=== PATIENT | male | born 1995 | race Caucasian/White ===

== ENCOUNTER 2017-06-09 19:51 | Emergency (ER) | payer OTHER ==
[~2017-06-09] VITALS: Ht 175.3 cm; Wt 65.4 kg
--- NOTE | 2017-06-09 19:58 | ED.ADGEN ---
Past History Past Medical History: Anxiety Adult General Chief Complaint Chief Complaint ".. I ve been diagnosed with generalized anxiety disorder and recently started on Lexapro... I been having a really bad at time with it and today and started having chest pain radiates into my left arm... And armpit.... I did have an EKG up in [facility] and I was told everything was normal. I had a previous workup for chest pain when he get everything in the first year of college with similar type presentation... I am working up in [facility] but drove home... today. HPI HPI Patient is a 21 year old male who presents with above hx and complaints of chest pain, left axillary and arm pain . Patient describes discomfort as an ache and burning. No history of trauma. Is normally fairly active and plays soccer. Pt. has had previous echo and treadmill evaluation 4 years ago which reportedly normal. Has not had a cardiac test or tilt table evaluation. No history of DVT. There is a family history of late onset blood clotting, MIs both on father and mother's side. Most cardiac disorders started in the 6-7th decade with relatives. No history of cardiac disorders in his age group or history of sudden . Patient reports he did have a functional heart murmur as a child. Supposedly murmur has resolved with age. Patient has previous diagnosis of generalized anxiety disorder made emergency department, and was started on Lexapro 10 mg a day. Patient is establishing a primary care at [facility]. Review of Systems Review of Systems Constitutional: Denies fever or chills [] Eyes: Denies change in visual acuity, redness, or eye pain [] HENT: Denies nasal congestion or sore throat [] Respiratory: Denies cough or shortness of breath [] Cardiovascular: No additional information not addressed in HPI [] GI: Denies abdominal pain, nausea, vomiting, bloody stools or diarrhea [] : Denies dysuria or hematuria [] Musculoskeletal: Denies back pain or joint pain [] Integument: Denies rash or skin lesions [] Neurologic: Denies headache, focal weakness or sensory changes [] Endocrine: Denies polyuria or polydipsia [] All other systems were reviewed and found to be within normal limits, except as documented in this note. Family History Family History Late onset cardiac disorders ages 60-70 Current Medications Current Medications Current Medications Medications (Trade) Dose Ordered Sig/Amauri Start Time Stop Time Status Last Admin Dose Admin Aspirin (Children'S Aspirin) 324 mg 1X ONCE 06/09/17 20:15 06/09/17 20:41 DC 06/09/17 20:34 324 MG Lactated Ringer's 1,000 ml @ 1,000 mls/hr Q1H 06/09/17 21:00 06/09/17 21:59 DC 06/09/17 20:57 1,000 MLS/HR Lorazepam (Ativan) 1 mg 1X ONCE 06/09/17 20:15 06/09/17 20:41 DC 06/09/17 20:33 1 MG Ondansetron HCl (Zofran Odt) 8 mg 1X ONCE 06/09/17 20:15 06/09/17 20:41 DC 06/09/17 20:34 8 MG See nursing for home medications Allergies Allergies Allergies Coded Allergies Type Severity Reaction Last Updated Verified Penicillins Allergy Intermediate 06/09/17 Yes Physical Exam Physical Exam Constitutional: Well developed, well nourished, moderate distress, non-toxic appearance. [] HENT: Normocephalic, atraumatic, bilateral external ears normal, oropharynx moist, no oral exudates, nose normal. [] Eyes: PERRLA, EOMI, conjunctiva normal, no discharge. [] Neck: Normal range of motion, no tenderness, supple, no stridor. [] Cardiovascular:Heart rate regular rhythm, no murmur [] Lungs & Thorax: Bilateral breath sounds clear to auscultation [] Abdomen: Bowel sounds normal, soft, no tenderness, no masses, no pulsatile masses. [] Skin: Warm, dry, no erythema, no rash. [] Back: No tenderness, no CVA tenderness. [] Extremities: No tenderness, no cyanosis, no clubbing, ROM intact, no edema. [] No cording noted in legs. Neurologic: Alert and oriented X 3, normal motor function, normal sensory function, no focal deficits noted. [] Psychologic: Affect normal, judgement normal, mood normal. [] Current Patient Data Vital Signs Vital Signs Date Time Temp Pulse Resp B/P (MAP) Pulse Ox O2 Delivery O2 Flow Rate FiO2 06/09/17 20:00 98.3 72 21 99 Room Air 06/09/17 20:00 146/84 (104) Lab Results Laboratory Tests Test 06/09/17 20:40 White Blood Count 7.3 x10^3/uL (4.0-11.0) Red Blood Count 5.45 x10^6/uL (4.30-5.70) Hemoglobin 16.0 g/dL (13.0-17.5) Hematocrit 44.7 % (39.0-53.0) Mean Corpuscular Volume 82 fL (79-100) Mean Corpuscular Hemoglobin 29 pg (25-35) Mean Corpuscular Hemoglobin Concent 36 g/dL (31-37) Red Cell Distribution Width 13.1 % (11.5-14.5) Platelet Count 274 x10^3/uL (140-400) Neutrophils (%) (Auto) 57 % (31-73) Lymphocytes (%) (Auto) 29 % (24-48) Monocytes (%) (Auto) 13 % (0-9) H Eosinophils (%) (Auto) 1 % (0-3) Basophils (%) (Auto) 1 % (0-3) Neutrophils # (Auto) 4.1 x10^3uL (1.8-7.7) Lymphocytes # (Auto) 2.1 x10^3/uL (1.0-4.8) Monocytes # (Auto) 0.9 x10^3/uL (0.0-1.1) Eosinophils # (Auto) 0.1 x10^3/uL (0.0-0.7) Basophils # (Auto) 0.1 x10^3/uL (0.0-0.2) Prothrombin Time 11.9 SEC (9.4-11.4) H Prothrombin Time INR 1.2 (0.9-1.1) H PTT < 21 SEC (23-33) L D-Dimer (Edie) < 0.19 mg/L (0.00-0.50) Sodium Level 140 mmol/L (136-145) Potassium Level 3.5 mmol/L (3.5-5.1) Chloride Level 104 mmol/L (98-107) Carbon Dioxide Level 24 mmol/L (21-32) Anion Gap 12 (6-14) Blood Urea Nitrogen 16 mg/dL (8-26) Creatinine 0.9 mg/dL (0.7-1.3) Estimated GFR (Cockcroft-Gault) 105.5 Glucose Level 97 mg/dL (70-99) Calcium Level 9.4 mg/dL (8.5-10.1) Magnesium Level 1.9 mg/dL (1.8-2.4) Total Bilirubin 0.6 mg/dL (0.2-1.0) Direct Bilirubin 0.1 mg/dL (0.0-0.2) Aspartate Amino Transferase (AST) 18 U/L (15-37) Alanine Aminotransferase (ALT) 20 U/L (16-63) Alkaline Phosphatase 69 U/L (46-116) Creatine Kinase 55 U/L (39-308) Creatine Kinase MB (Mass) < 0.5 ng/mL (0.0-3.6) Creatine Kinase MB Relative Index 0.9 % (0-4) Troponin I Quantitative < 0.017 ng/mL (0-0.055) GY-Ufs-D-Type Natriuretic Peptide 9 pg/mL (0-124) Total Protein 8.0 g/dL (6.4-8.2) Albumin 4.3 g/dL (3.4-5.0) EKG EKG My interpretation EKG shows a sinus rhythm at 61 bpm. There is some bimodal P- wave's. There is some findings that J-point elevation in the 1-345 but no contralateral findings consistent with STEMI.[] Radiology/Procedures Radiology/Procedures My interpretation of chest x-ray shows no acute cardiopulmonary findings.[] Course & Med Decision Making Course & Med Decision Making Pertinent Labs and Imaging studies reviewed. (See chart for details). To take a daily baby aspirin. Follow-up primary care. Discuss side effects from the Lexapro with primary care and alternate treatment of a anxiety disorder.. Consider repeat stress testing and echo with cardiology. [] Final Impression Final Impression 1. Chest pain[] 2. History of anxiety disorder Problems: Dragon Disclaimer Dragon Disclaimer This electronic medical record was generated, in whole or in part, using a voice recognition dictation system. DANIEL QUEVEDO MD Jun 09, 2017 19:58
[2017-06-09] MEDS ORDERED: ONDANSETRON ODT 4 MG TAB.RAPDIS PO ONE (20:15)
[2017-06-09] MEDS ORDERED: LORazepam 1 MG TABLET PO ONE (20:15)
[2017-06-09] MEDS ORDERED: ASPIRIN 81 MG TAB.CHEW PO ONE (20:15)
[2017-06-09] MEDS ORDERED: ALPR1TAB2 PO (20:25)
[2017-06-09] MEDS ORDERED: ESCITALOPRAM OX10 MG PO (20:25)
[2017-06-09] MEDS ORDERED: IV RINGERS SOLUTION,LACTATED 1,000 ML IV SCH (21:00)
[2017-06-09 21:02] LABS: BASO # 0.1 x10^3/uL (0.0-0.2); BASO % 1 % (0-3); EOS # 0.1 x10^3/uL (0.0-0.7); EOS % 1 % (0-3); HEMATOCRIT 44.7 % (39.0-53.0); LYMPH # 2.1 x10^3/uL (1.0-4.8); LYMPH % 29 % (24-48); MEAN CORPUSCULAR HEMOGLOBIN 29 pg (25-35); MEAN CORPUSCULAR HGB CONC 36 g/dL (31-37); MEAN CORPUSCULAR VOLUME 82 fL (79-100); MONO # 0.9 x10^3/uL (0.0-1.1); MONO % 13 % (0-9); NEUT # 4.1 x10^3uL (1.8-7.7); NEUT % 57 % (31-73); PLATELET COUNT 274 x10^3/uL (140-400); RED BLOOD COUNT 5.45 x10^6/uL (4.30-5.70); RED CELL DISTRIBUTION WIDTH 13.1 % (11.5-14.5); WHITE BLOOD COUNT 7.3 x10^3/uL (4.0-11.0)
[2017-06-09 21:25] LABS: ALBUMIN 4.3 g/dL (3.4-5.0); ALK PHOS 69 U/L (46-116); ALT (SGPT) 20 U/L (16-63); ANION GAP 12 (6-14); AST (SGOT) 18 U/L (15-37); BLOOD UREA NITROGEN 16 mg/dL (8-26); CALCIUM 9.4 mg/dL (8.5-10.1); CARBON DIOXIDE 24 mmol/L (21-32); CHLORIDE 104 mmol/L (98-107); CREATINE KINASE 55 U/L (39-308); CREATININE 0.9 mg/dL (0.7-1.3); DIRECT BILIRUBIN 0.1 mg/dL (0.0-0.2); GFR 105.5; GLUCOSE 97 mg/dL (70-99); MAGNESIUM 1.9 mg/dL (1.8-2.4); POTASSIUM 3.5 mmol/L (3.5-5.1); SODIUM 140 mmol/L (136-145); TOTAL BILIRUBIN 0.6 mg/dL (0.2-1.0)
[2017-06-09] MEDS ORDERED: LORA-434 PO (22:26)
[2017-06-09 23:00] VITALS: BP 140/73
[2017-06-09 23:32] LABS: AMPHETAMINE/METHAMPHETAMINE NEG (NEG); BARBITURATES NEG (NEG); BENZODIAZEPINES NEG (NEG); CANNABINOIDS NEG (NEG); COCAINE NEG (NEG); METHADONE NEG (NEG); OPIATES NEG (NEG); PHENCYCLIDINE NEG (NEG)
[2017-06-09 23:52] LABS: BILIRUBIN,URINE NEG (NEG); CLARITY,URINE CLEAR; COLOR,URINE YELLOW; GLUCOSE,URINE NEG (NEG)
[2017-06-09 23:53] LABS: BACTERIA,URINE FEW /HPF (0-FEW); NITRITE,URINE NEG (NEG); RBC,URINE 0 /HPF (0-2); SQUAMOUS EPITHELIAL CELL,UR OCC /LPF; UROBILINOGEN,URINE 0.2 mg/dL (0.2 mg/dL); WBC,URINE 0 /HPF (0-4)
--- NOTE | 2017-06-10 04:18 | EKG ---
[address] [address] Test Date: 2017-06-09 Test Time: 20:24:49 Pat Name: DHIRAJ PAZ Department: Room: Gender: M Hydraulic Specialist: : [id number] Requested By: DANIEL QUEVEDO Order Number: [id number] Reading MD: Sang Guardado Measurements Intervals [place] Rate: 61 P: 56 TX: 160 QRS: 90 QRSD: 98 T: 39 QT: 384 QTc: 388 Interpretive Statements SINUS RHYTHM LEFT ATRIAL ABNORMALITY S1,S2,S3 PATTERN ABNORMAL ECG RI6.01 No previous ECG available for comparison Electronically Signed On 06-19-2017 10:29:25 PATHOLOGY [employer]ORATORY [employer] by Sang Guardado
--- NOTE | 2017-06-10 09:51 | RAD ---
PROCEDURE: PORTABLE CHEST 1V CLINICAL INDICATION: Chest pain COMPARISON: None FINDINGS: No pneumothorax identified. Cardiac and mediastinal contours unremarkable. No pulmonary consolidation or acute airspace disease. No acute osseous abnormalities identified. IMPRESSION: No pulmonary consolidation or acute airspace disease.
== END 2017-06-09 23:12 | disposition home or self-care (01) ==
LOC: ER 19:51
DX: R07.9 Chest pain, unspecified (principal); M79.602 Pain in left arm; F41.1 Generalized anxiety disorder; Z88.0 Allergy status to penicillin
CPT/HCPCS: 36415; 71045; 80048; 80076; 80307; 81001; 82553; 83735; 83880; 84443; 84484; 85025; 85379; 85610; 85730; 93005; 96360; 99285; J7120; Q0162; G0479